=== PATIENT | female | born 1965 | race Caucasian/White ===

== ENCOUNTER 2025-02-16 20:23 | Emergency (ER) | payer BC, SELFPAY ==
--- OUTSIDE RECORDS SUMMARY | 2025-02-16 20:25 | XMS_ITS | Clinical Summary ---
Author Organization [facility] Address [address] [facility] [place] [address] Care Team Providers Care Spot Billing Clerk Name Role Phone Clinic - Jabari Valle [facility] Primary Care Provider Allergies No known active allergies Medications No known medications Active Problems Problem Noted Date Diagnosed Date Perforation of tympanic membrane, left 2 History of mastoidectomy 11/03/2021 Social History Tobacco Use Types Packs/Day Years Used Date Smoking Tobacco: Every Day Smokeless Tobacco: Never Tobacco Cessation:Ready to Q uit: No; Counseling Given: Yes Adolescent Education Answer Date Record ed Getting School Help Needed Not on file 01/30 Comments No Sex and Gender Information Value Date Recorded Sex Assigned at Not on file Legal Sex Female 8:04 AM CDT Gender Identity Not on file Sexual Orientation Not on file Last Filed Vital Signs Vital Sign Reading Time Taken Comments Blood Pressure 135/87 09/05/2021 8:07 AM CDT Pulse 69 09/05/2021 8:07 AM CDT Temperature - - Respiratory Rate - - Oxygen Saturation 98% 09/05/2021 8:07 AM CDT Inhaled Oxygen Concentration - - Weight 65.8 kg (145 lb) 11/03/2021 9:10 AM CDT Height - - Body Mass Index - - Plan of Treatment Not on file [facility] [id number] [facility] [id number] [facility] Care Teams Spot Billing Clerk Relationship Specialty Start Date End Date Clinic - Jabari Valle [address] [place] [address] PCP - General 08/06/21
--- OUTSIDE RECORDS SUMMARY | 2025-02-16 20:26 | XMS_ITS | Clinical Summary ---
Author Organization [employer] [facility] Address [address] [place] [address] Care Team Providers Care Public Service Representative Name Role Phone Unknown, Doctor Primary Care Provider Unavailabl e Allergies No known active allergies Medications cholecalciferol , Vitamin D3, (VITAMIN D-3) 5,000 unit tab tablet Take 1 tablet by mouth once daily. 0 04/09/2020 Active Calcium Citrate 250 mg calcium tablet Take 2 tablets by mouth once daily. 90 tablet 04/09/2020 Active ofloxacin (FLOXIN) 0.3 % otic solutionIndicat ions:Perforatio n of left tympanic membrane Place 5 Drops into left ear two times daily. 5 mL 11/24/2023 Active prednisoLONE acetate 1% ophthalmic suspensionIndic ations:Perforat ion of left tympanic membrane As directed 2 Drops two times daily. Use in left ear for 7 days. Then may use for a couple days at a time when ears itch. 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 Plan: Pap/HPV due 01/2026. Screen for colon cancer Resolved Problems Problem Noted Date Diagnosed Date Resolved Date BV (bacterial vaginosis) 04/02/2014 Vitamin D deficiency 01/03/2014 017 Sprain of lumbosacral (joint) (ligament) 10/25/2007 07/23/2016 RAHEL III with severe dysplasia 05/10/2006 04/20/2019 Overview (03/24/2018): LEEP- RAHEL 2-3 (+margins). Pap/HPV every 3 years x 20 years Immunizations Immunization Administration Dates Next Due Tdap 03/09/2017,01/03/2007 Family History Medical History Relation Name Comments Anesthesia Problem Daughter Bipolar disorder Father Cancer Father Psychiatric illness Father Cancer Mother cervical ca age late 20's Other Mother Psychiatric illness Mother Anesthesia Problem Sister Other Sister ulcers, and qign dder fallen Thyroid Disease Sister Cancer-breast No Family History Cancer-ovarian No Family History Relation Name Status Comments Daughter Father Alive Mother Alive Sister Alive Social History Tobacco Use Types Packs/Day Years Used Date Smoking Tobacco: Every Day Cigarettes 0.5 15 Smokeless Tobacco: Never Tobacco Cessation:Ready to Q uit: Not Asked; Counseling Given: Not Answered Comments:started on wellbutrin 03/09/16 Alcohol Use Standard Drinks/Week Comments Yes 1.7 (1 standard drink = 0.6 oz p ure alcohol) occ PHQ-2 Answer Date Recorded PHQ-2 TOTAL SCORE 0 2023 Social Connections Answer Date Recorded Do you often feel lonely or isolated from those around you? 0 2023 Financial Resource Strain Answer Date R ecorded Difficulty of Paying Living Expenses 3 2023 Difficulty of Paying Living Expenses Not on file 2023 Food Insecurity Answer Date Recorded Do you worry your food will run out before you are able to buy more? 1 2023 Transportation Needs Answer Date Record ed Does lack of transportation keep you from medica l appointments? 1 2023 Does lack of transportation keep you from work, meetings or getting things that you need? 1 2023 Housing Stability Answer Date Recorded What is your housing situation today? 1 2023 Utilities Answer Date Recorded Do you have trouble paying f or utilities (for example, heat, electricity, water, phone)? 1 2023 Comments No Sex and Gender Information Value Date Recorded Sex Assigned at Not on file Legal Sex Female 5:36 AM PRINTER FLOOR COVERING ASSISTANT Gender Identity Not on file Sexual Orientation Not on file Obstetrics History Para Term AB IAB SAB Ectopic Multiple Livin g Live Births 2 2 2 0 0 0 0 0 0 2 2 Date Outcome GA Total Labor Labor/2nd/3rd Weight Sex Type Anes PTL Soha A1 A5 Name Clin Term Living Term Living Last Filed Vital Signs Vital Sign Reading Time Taken Comments Blood Pressure 132/78 09/09/2024 9:02 AM CDT Pulse 70 09/09/2024 9:02 AM CDT Temperature 36.5 C (97.7 F) 09/09/2024 9:02 AM CDT Respiratory Rate 16 09/09/2024 9:02 AM CDT Oxygen Saturation 97% 09/09/2024 9:02 AM CDT Inhaled Oxygen Concentration - - Weight 69.4 kg (153 lb) 2023 7:00 AM CDT Height 163.8 cm (5' 4.5) 2023 7:00 AM CDT Body Mass Index 25.86 2023 7:00 AM CDT Plan of Treatment Upcoming Encounters Date Type Department Care Team (Late st Contact Info) Description 02/20/2025 10:00 AM CDT Office Visit [facility] [address] [place] [phone] Cedrick Dickson-Bernardo Woods MD [address] [facility] [address] [place] [address] Health Maintenance Due Date Last Done Comments Hepatitis B series for 19+ ( 1 of 3 - 19+ 3-dose series) 1985 Pneumococcal series for age 50+ (1 of 2 - PCV) 1985 Zoster (shingles) series for age 50+ (1 of 2) 2016 Mammogram for age 45-75 01/30/2024 01/30/20, 11/25/2021, 05/22/2020, Additional history exists BMI (ht and wt on same day) for age 18+ 11/16/2024 2023, 04/28/2022, 09/29/2021, Additional history exists Depression screening for age 12+ 2024 11/18/2023, 11/18/2023, 11/18/2023, Additional history exists COVID-19 vaccine series ( - season) 2025 Influenza Vaccine (#1) 2025 Pap test for age 21-65 01/29/2026 , 01/29/2023, 09/29/2021, Additional history exists Lipids for age 45-75 09/29/2026 09/29/2021, 04/09/2020, 03/11/2018, Additional history exists Tetanus booster 03/09/2027 03/09/2017, 01/03/2007 Colonoscopy through age 75 04/01/2028 04/01/2018 RSV vaccine for adults or (1 - 1-dose 75+ series) 2041 HIV for age 15-65 Completed 09/02/2017, , 04/26/2017, Additional history exists Hepatitis C screening for ag e 18-79 Completed 09/02/2017, 06/04/2017, 04/26/2017, Additional history exists Procedures Procedure Name Priority Date/Time Associated Diagnosis Comments AIR CREW SUPERVISOR THIN PREP PAP SCREEN IMAGED Routine 01/29/2023 9:45 AM CDT Pap smear for cervical cancer screening XR MAMMO ENRIQUE BILAT SCREEN Routine 01/29/2023 9:01 AM CDT Visit for screening mammogram LIPID PANEL W REFLEX MEASURED LDL Routine 09/29/2021 11:25 AM CDT Routine general medical examination at a health care facility COLONOSCOPY 04/01/2018 9:10 AM PRINTER FLOOR COVERING ASSISTANT ANTI HIV 1/2 Routine 09/02/2017 1:45 PM CDT Exposure to body fluids by contaminated hypodermic needle stick ANTI HCV Routine 09/02/2017 1:45 PM CDT Exposure to body fluids by contaminated hypodermic needle stick from Last 3 Months or Most Recently Relevant to Health Maintenance Results * AIR CREW SUPERVISOR THIN PREP PAP SCREEN IMAGED (01/29/2023 9:45 AM CDT) Case Report Gynecologic Cytology Report Case: [id number] Authorizing Provider: Noemi Wong NP Collected: 01/29/2023 0945 Ordering Location: [facility] Received: 01/29/2023 1005 Clinic First Screen: Shavonne Mccoy Specimen: AIR CREW SUPERVISOR ThinPrep Vial Screening, Cervical 02/04/2023 9:20 AM CDT [facility] INTERPRETATION/ RESULT NEGATIVE FOR INTRAEPITHELIAL LESION OR MALIGNANCY (NIL) (none) 02/04/2023 9:20 AM CDT [facility] at 0920 CDT SPECIMEN ADEQUACY Satisfactory for evaluation Endocervical component present 02/04/2023 9:20 AM CDT [facility] HPV REQUEST HPV and PAP 02/04/2023 9:20 AM CDT [facility] Date of LMP 201202/04/2023 9:20 AM CDT [facility] Last Pap Date 09/29/21 02/04/2023 9:20 AM CDT [facility] Last Pap Result NIL 9:20 AM CDT [facility] Abnormal Pap or Kenefic Bx in last 5 years No 02/04/2023 9:20 AM CDT [facility] Menstrual Status Postmenopausal 02/04/2023 9:20 AM CDT [facility] Kenefic Bx Done Today No 02/04/2023 9:20 AM CDT [facility] Additional Information None given 02/04/2023 9:20 AM CDT [facility] Comment: Cytology is screened at [facility] - [address], [place] [address] and [facility] - [address], [place] [address] and [facility] - [address] [place] [address] Interpreted at [facility] - [address], [place] [address] Automated Review Successful 02/04/2023 9:20 AM CDT [facility] Comment:Specimen processed s uccessfully by automated communications associate device, ThinPrep Imaging System, [employer] ANCILLARY TESTING AIR CREW SUPERVISOR HPV Ordered, Please see separate report 02/04/2023 9:20 AM CDT [facility] Note The pap test is a screening technique, not a diagnostic procedure. It is used primarily to screen for squamous cancers and precursor lesions. Published studies have shown that it is subject to both false negative and false positive results. The pap test should not be used as the sole means to diagnose or exclude pre-malignant and malignant lesions. 02/04/2023 9:20 AM CDT [facility] Other (Cervical) Non-Blood / Unknown 01/29/2023 9:45 AM CDT 01/29/2023 10:05 AM CDT us Noemi Wong NP PATHOLOGY/CYTOLOGY Final Result [facility] [address] [place] [address], [place] * XR MAMMO ENRIQUE BILAT SCREEN (01/29/2023 9:01 AM CDT) Anatomical Region Laterality Modality BREASTS, Breast Left, Breast Right Bilateral Mammography Impressions 01/29/2023 12:20 PM CDT There is no radiographic evidence for malignancy. Recommend annual mammograms. MAMMOGRAM ASSESSMENT: ACR 1 Negative PATIENTS: You will also receive a letter with your examination results in an easy to read format. If you have questions about your results, please contact your referring provider. Narrative 01/29/2023 12:20 PM CDT For Patients: As a result of the Cures Act, medical imaging exams and procedure reports are released immediately into your electronic medical record. You may view this report before your referring provider. If you have questions, please contact your health care provider. XR MAMMO ENRIQUE BILAT SCREEN [[id number]] CLINICAL HISTORY: This is an asymptomatic 57 y.o. patient. INDICATION FOR EXAM: Mammogram Screening. TECHNIQUE: CC & MLO views were obtained. This study was evaluated with the assistance of Computer-Aided Detection. Breast Tomosynthesis was used in interpretation. COMPARISON FILM: Yes 11/25/21 [place] 05/22/20 [place] FINDINGS: The breasts have scattered areas of fibroglandular density. There are no dominant masses, suspicious micro calcifications or areas of architectural distortion. us Noemi Wong VISUAL DESIGN LEAD MAMMO Final Re sult * (ABNORMAL) LIPID PANEL W REFLEX MEASURED LDL (09/29/2021 11:25 AM CDT) CHOLESTEROL,TOTAL 221(H) 100 - 199 mg/dL 09/29/2021 5:43 PM CDT [facility] TRIGLYCERIDES 78 <150 mg/dL 09/29/2021 5:43 PM CDT [facility] HDL CHOLESTEROL 84 >40 mg/dL 5:43 PM CDT [facility] NON-HDL CHOLESTEROL 137 <145 mg/dl 09/29/2021 5:43 PM CDT [facility] CHOL/HDL RATIO 2.63 <4.50 09/29/2021 5:43 PM CDT [facility] LDL CHOLESTEROL 121 <=130 mg/dL 09/29/2021 5:43 PM CDT [facility] VLDL CHOLESTEROL 16 <=30 mg/dL 09/29/2021 5:43 PM CDT [facility] PROVIDER ORDERED STATUS RANDOM 09/29/2021 5:43 PM CDT [facility] Blood BLOOD SPECIMEN / Unknown Venipuncture / Unknown 09/29/2021 11:25 AM CDT 09/29/2021 11:27 AM CDT us Gerda Mead VISUAL DESIGN LEAD CHEMISTRY Final Re sult [facility] [place]NAL ZIP [phone] [place] [address], [place] [phone] * COLONOSCOPY (04/01/2018 9:10 AM PRINTER FLOOR COVERING ASSISTANT) 04/01/2018 9:10 AM PRINTER FLOOR COVERING ASSISTANT Narrative Transcriptions Jose Manuel Lerner MD - 04/01/2018 9:37 AM CST Procedural Care Center Patient Name: Iqra Mai Procedure Date: 04/01/2018 Gender: Female Date of : 1965 Admit Type: Ambulatory Procedure: Colonoscopy Proceduralist: Jose Manuel Lerner MD Indications/Pre-Op Diagnosis: Screening for colorectal malignantneoplasm Medications: Monitored Anesthesia Care Procedure Description: The patient had risks, benefits and alternatives explained to andgave informed consent. The patient had a stable cardiopulmonary status and judged an adequate candidate for conscious sedation. The pediatric colonoscope was passed through the anus and advanced to the cecum, identified by appendiceal orifice and ileocecal valve. The colonoscopy was performed without difficulty. The patient toleratedthe procedure well. The quality of the bowel preparation was good. The ileocecal valve, the appendiceal orifice and the rectum were photographed. Scope Withdrawal Time 0 hours 7 minutes 40 seconds Complications: No immediate complications. Estimated Blood Loss & Specimen: Estimated blood loss: none. Specimen collected: Yes and sent to Laboratory Findings: A 3 mm polyp was found in the sigmoid colon. The polyp was sessile.The polyp was removed with a cold snare. Resection and retrieval were complete. A few diverticula were found in the entire colon. few smallhyperplastic rectal hyperplastic polyps: did not biopsy Impressions/Post-Op Diagnosis: - One 3 mm polyp in the sigmoid colon, removed with a cold snare. Resected and retrieved. - Diverticulosis in the entire examined colon. Recommendation: - High fiber diet. - Repeat colonoscopy 5 years if any polyp is adenoma, 10 yearfollow-up colonoscopy if all polyps are hyperplastic polyps. - Stop screening colonoscopies after age 75 due to age. Jose Manuel Lerner MD 04/01/2018 9:37:16 AM This report has been signed electronically. Note Initiated On: 04/01/2018 9:10 AM Jose Manuel Lerner MD PROCEDURE ORD Final Result * ANTI HCV (09/02/2017 1:45 PM CDT) HEPATITIS C ANTIBODY Non-React dustin Non-React dustin 09/02/2017 6:54 PM CDT [facility] Comment:Antibodies to HCV no t detected; does not exclude the possibility of exposure to HCV. Blood BLOOD SPECIMEN / Unknown Venipuncture / Unknown 09/02/2017 1:45 PM CDT 09/02/2017 1:45 PM CDT Alfonso Pro MD SEND OUTS Jenny l Result [facility] [address] [place] [address], [place] * ANTI HIV 1/2 (09/02/2017 1:45 PM CDT) HIV-1/HIV-2 ANTIBODY Non-Reacti ve Non-Reacti ve 09/02/2017 7:21 PM CDT [facility] Comment:HIV-1 p24 and HIV-1/ HIV-2 Ab not detected. Blood BLOOD SPECIMEN / Unknown Venipuncture / Unknown 09/02/2017 1:45 PM CDT 09/02/2017 1:45 PM CDT us Alfonso Pro MD S[employer] OUTS Jenny patel Result [facility] [address] [place] [address], [place] from Last 3 Months or Most Recently Relevant to Health Maintenance Additional Health Concerns Infection Onset Date Last Indicated CLOSTRIDIUM DIFFICILE 10/23/2021 10/23/2021 Insurance [facility] WORKERS [employer] WORKERS COMP on file [employer] [facility] Member Subscriber Plan / Payer (Ef fective 2009-Present) Name:Iqra Mai Member ID:[id number] Relation to Subscriber:Self Name:Iqra Mai Subscriber ID:[id number] Payer ID:Not on file Group ID:NONE Type:Not on file Address: [facility] [address] [place] [address] [facility] Advance Directives * Full Code (Latest Code Status on File) Date Activated Date Inactivated Comments 04/01/2018 8:33 AM 04/01/2018 12:20 PM Question Answer Comments Code Status Discussion: Not Discussed Care Teams Public Service Representative Relationship Specialty Start Date End Date Unknown, Doctor . PCP - General 03/14/20
[2025-02-16 20:29] VITALS: PULSE 76; RESP 24; TEMP 36.1; O2SAT 99; BMI 25.7
--- NOTE | 2025-02-16 20:39 | ED_ITS ---
HPI - Extremity Injury (Upper) General Time Seen by Provider: 20:39 <Kelly Choi MD - Last Filed: 02/17/25 02:56> Date Seen: 02/16/25 <Kelly Choi MD - Last Filed: 02/17/25 02:56> Chief Complaint: Shoulder Injury/Pain <Kelly Choi MD - Last Filed: 02/17/25 02:56> Stated Complaint: fell and dislocated left shoulder blade <Kelly Choi MD - Last Filed: 02/17/25 02:56> Time Seen by Provider: 02/16/25 20:39 <Kelly Choi MD - Last Filed: 02/17/25 02:56> Source: patient and RN notes reviewed <Kelly Choi MD - Last Filed: 02/17/25 02:56> Mode of arrival: ambulatory <Kelly Choi MD - Last Filed: 02/17/25 02:56> Limitations: no limitations <Kelly Choi MD - Last Filed: 02/17/25 02:56> History of Present Illness HPI narrative: This 53-year-old female is ambulatory into the ED with an injury to her left shoulder. She states she fell about 8:00 p.m.. She fell on the grass, she was holding onto her dog and the dog took off, causing her to fall. She maybe had 3 alcoholic beverages, beer. She last ate around noon. She initially felt some numbness tingling in the fingers of this hand but that has resolved. She can feel fine now. They were sitting around a fire, just enjoying the evening when some dog came into the ER at, the daughter's dog was with the patient and pulled away. She denies hitting her head, no headache, no visual change, no neck or back pain. She fell onto the left shoulder. Nothing else was injured. She is having no difficulty breathing, no chest or chest wall pain. <Kelly Choi MD - Last Filed: 02/17/25 02:56> MD complaint: injury to: left <Kelly Choi MD - Last Filed: 02/17/25 02:56> Related Data Home Medications: Home Medications ?Medication ?Instructions ?Recorded ?Confirmed No Known Home Medications 02/16/2502/07 <Kelly Choi MD - Last Filed: 02/17/25 02:56> Allergies/Adverse Reactions: Allergies Allergy/AdvReac Type Severity Reaction Status Date / Time No Known Drug Allergies Allergy Verified 02/16/25 20:35 <Kelly Choi MD - Last Filed: 02/17/25 02:56> Review of Systems Status of ROS: Reports: 6 or more systems reviewed and unremarkable except as noted in History and below <Kelly Choi MD - Last Filed: 02/17/25 02:56> Exam Const: Vital Signs, click to edit/add: Vital Signs - 24 hr 02/16/25 20:29 02/16/25 21:03 02/16/25 21:11 Temperature 97.0 F L Pulse Rate Pulse Rate [Left P ulse Oximeter] 76 55 L Respiratory Rate 24 20 Blood Pressure [Ri ght Upper Arm] 123/76 Pulse Oximetry 99 94 Oxygen Delivery Me thod Room Air Room Air Nasal Cannula Oxygen Flow Rate 2 02/16/25 22:07 02/16/25 22:15 Temperature Pulse Rate 70 68 Pulse Rate [Left P ulse Oximeter] Respiratory Rate Blood Pressure [Ri ght Upper Arm] Pulse Oximetry 95 95 Oxygen Delivery Me thod Room Air Room Air Oxygen Flow Rate This 59-[facility] due to her severe pain and lack of rooms at this time. She is alert, interactive in obvious pain. She has a sulcus sign along the left shoulder. She is holding her arm in front of her, raised up on her knee, stating this is a position of comfort. She has a good radial pulse, she can wiggle her fingers on this left hand, can feel me touch, has normal cap refill. She has no pain throughout the fingers, hand, wrist, forearm, elbow on this side. Lungs are clear come good air entry, wheeze or crackles, no tachypnea, no accessory muscle use. CV regular rate and rhythm, no murmur, normal S1-S2. <Kelly Choi MD - Last Filed: 02/17/25 02:56> Vital Signs, click to edit/add: Vital Signs - 24 hr 02/16/25 20:29 02/16/25 21:03 02/16/25 21:11 Temperature 97.0 F L Pulse Rate Pulse Rate [Left P ulse Oximeter] 76 55 L Respiratory Rate 24 20 Blood Pressure [Ri ght Upper Arm] 123/76 Pulse Oximetry 99 94 Oxygen Delivery Me thod Room Air Room Air Nasal Cannula Oxygen Flow Rate 2 02/16/25 22:07 02/16/25 22:15 Temperature Pulse Rate 70 68 Pulse Rate [Left P ulse Oximeter] Respiratory Rate Blood Pressure [Ri ght Upper Arm] Pulse Oximetry 95 95 Oxygen Delivery Me thod Room Air Room Air Oxygen Flow Rate <Edinson Blake MD - Last Filed: 02/16/25 23:52> Documenting provider has reviewed patient's vital signs: yes <Kelly Choi MD - Last Filed: 02/17/25 02:56> Course Course ED Course: This patient will be getting imaging, highly suspect a shoulder dislocation. Plan on giving her 10 mL of lidocaine in the glenoid fossa. Have ordered 50 mcg fentanyl, 4 mg IV Zofran and set up for conscious sedation. I do not think that this patient is going to be able to tolerate doing this without conscious sedation given her pain level in discomfort despite alcohol being on board. She still functionally appropriate. <Kelly Choi MD - Last Filed: 02/17/25 02:56> Reevaluation(s) Reevaluation #1: Initial x-rays look like there might be a little dislocation fragment off the proximal humerus but it does appear to be an anterior dislocation. Patient was consented on conscious sedation and shoulder reduction. I do not think given her discomfort that we really can wait. Dr. Blake was present, I was able to use some traction and support under the humeral head and reduce it back into the glenoid fossa. [place] the clunking going back in. Patient had sedation assisted by Dr. Blake, please see his documentation. After the procedure, shoulder immobilizer was placed, post imaging films reviewed and looks like you can see a lateral humeral head fracture but she is relocated in the joint. Shoulder immobilizer placed, neurovascular is documented to be intact. <Kelly Choi MD - Last Filed: 02/17/25 02:56> Time of Reevaluation #2: 21:56 <Kelly Choi MD - Last Filed: 02/17/25 02:56> Reevaluation #2: Patient is requesting more pain medications, will try some Toradol IV and PO Tylenol. <Kelly Choi MD - Last Filed: 02/17/25 02:56> Time of Reevaluation #3: 22:47 <Kelly Choi MD - Last Filed: 02/17/25 02:56> Reevaluation #3: Patient has minute post sedation criteria. Have discussed restrictions and follow-up recommendations. Demonstrated pendulum exercises. We reviewed that these are done to help prevent frozen shoulder later on. She is safe for discharge now. <Kelly Choi MD - Last Filed: 02/17/25 02:56> Vital Signs Vital signs: Initial Vital Signs Temperature 97.0 F L 02/16/25 20:29 Temperature Source Temporal Artery Scan 02/16/25 20:29 Pulse Rate 76 02/16/25 20:29 Pulse Rhythm Regular 02/16/25 20:29 Respiratory Rate 24 02/16/25 20:29 Pulse Oximetry 99 02/16/25 20:29 Oxygen Delivery Method Room Air 02/16/25 20:29 Vital Signs Temperature 97.0 F L 02/16/25 20:29 Pulse Rate 76 02/16/25 20:29 Respiratory Rate 24 02/16/25 20:29 Pulse Oximetry 99 02/16/25 20:29 Oxygen Delivery Method Room Air 02/16/25 20:29 Temperature 97.0 F L 02/16/25 20:29 Pulse Rate 68 02/16/25 22:15 Respiratory Rate 20 02/16/25 21:11 Blood Pressure 123/76 02/16/25 21:11 Pulse Oximetry 95 02/16/25 22:15 Oxygen Delivery Method Room Air 02/16/25 22:15 Oxygen Flow Rate 2 02/16/25 21:11 <Kelly Choi MD - Last Filed: 02/17/25 02:56> Initial Vital Signs Temperature 97.0 F L 02/16/25 20:29 Temperature Source Temporal Artery Scan 02/16/25 20:29 Pulse Rate 76 02/16/25 20:29 Pulse Rhythm Regular 02/16/25 20:29 Respiratory Rate 24 02/16/25 20:29 Pulse Oximetry 99 02/16/25 20:29 Oxygen Delivery Method Room Air 02/16/25 20:29 Vital Signs Temperature 97.0 F L 02/16/25 20:29 Pulse Rate 76 02/16/25 20:29 Respiratory Rate 24 02/16/25 20:29 Pulse Oximetry 99 02/16/25 20:29 Oxygen Delivery Method Room Air 02/16/25 20:29 Temperature 97.0 F L 02/16/25 20:29 Pulse Rate 68 02/16/25 22:15 Respiratory Rate 20 02/16/25 21:11 Blood Pressure 123/76 02/16/25 21:11 Pulse Oximetry 95 02/16/25 22:15 Oxygen Delivery Method Room Air 02/16/25 22:15 Oxygen Flow Rate 2 02/16/25 21:11 <Edinson Blake MD - Last Filed: 02/16/25 23:52> Medications Administered Medications: Discontinued Medications Generic Name Dose Route Start Last Admin Trade Name Freq PRN Reason Stop Dose Admin Acetaminophen 1,000 mg 02/16/25 21:55 02/16/25 22:19 Acetaminophen 500 Mg Tablet PO 02/16/25 21:56 1,000 mg ONCE ONE Administration Fentanyl 50 mcg 02/16/25 20:44 02/16/25 21:00 Fentanyl 100 Mcg/2 Ml Inj IVP 02/16/25 20:45 50 mcg ONCE ONE Administration Sodium Chloride 500 mls @ 500 mls/hr 02/16/25 20:44 02/16/25 22:10 0.9 % Sodium Chloride 500 Ml IV 02/16/25 21:43 Infused .Q1H ONE Infusion Ketorolac Tromethamine 15 mg 02/16/25 21:55 02/16/25 22:16 Ketorolac 15 Mg/Ml Inj IVP 02/16/25 21:56 15 mg ONCE ONE Administration Lidocaine HCl 10 ml 02/16/25 20:44 02/16/25 21:00 Lidocaine 1% Mdv INJECTION 02/16/25 20:45 10 ml ONCE ONE Administration Ondansetron HCl 4 mg 02/16/25 20:44 02/16/25 21:00 Ondansetron 2 Mg/Ml Inj IVP 02/16/25 20:45 4 mg ONCE ONE Administration Propofol 200 mg 02/16/25 20:58 02/16/25 21:12 Propofol 10 Mg/Ml Inj IVP 02/16/25 20:59 50 mg ONCE ONE Administration <Kelly Choi MD - Last Filed: 02/17/25 02:56> Discontinued Medications Generic Name Dose Route Start Last Admin Trade Name Freq PRN Reason Stop Dose Admin Acetaminophen 1,000 mg 02/16/25 21:55 02/16/25 22:19 Acetaminophen 500 Mg Tablet PO 02/16/25 21:56 1,000 mg ONCE ONE Administration Fentanyl 50 mcg 02/16/25 20:44 02/16/25 21:00 Fentanyl 100 Mcg/2 Ml Inj IVP 02/16/25 20:45 50 mcg ONCE ONE Administration Sodium Chloride 500 mls @ 500 mls/hr 02/16/25 20:44 02/16/25 22:10 0.9 % Sodium Chloride 500 Ml IV 02/16/25 21:43 Infused .Q1H ONE Infusion Ketorolac Tromethamine 15 mg 02/16/25 21:55 02/16/25 22:16 Ketorolac 15 Mg/Ml Inj IVP 02/16/25 21:56 15 mg ONCE ONE Administration Lidocaine HCl 10 ml 02/16/25 20:44 02/16/25 21:00 Lidocaine 1% Mdv INJECTION 02/16/25 20:45 10 ml ONCE ONE Administration Ondansetron HCl 4 mg 02/16/25 20:44 02/16/25 21:00 Ondansetron 2 Mg/Ml Inj IVP 02/16/25 20:45 4 mg ONCE ONE Administration Propofol 200 mg 02/16/25 20:58 02/16/25 21:12 Propofol 10 Mg/Ml Inj IVP 02/16/25 20:59 50 mg ONCE ONE Administration <Edinson Blake MD - Last Filed: 02/16/25 23:52> MDM - Extremity Injury (Upper) Imaging Data XR left shoulder: Attestation: I have reviewed the pertinent imaging results. <Kelly Gregory MD - Last Filed: 02/17/25 02:56> My impression: Shoulder dislocation with probable fracture, wait radiology over read. <Kelly Choi MD - Last Filed: 02/17/25 02:56> Radiologist's impression: Patient: KARO VIDAL Facility:?[facility] Patient ID:?[id number] Site Patient ID:?[id number]. Site :?1965 Study:?XRay-Shoulder Left SHOULDER 2 VIEWS-02/16/2025 9:03:09 PM Ordering Physician:Raghav Mendoza Final Report: Indication: Trauma. Technique: Left shoulder, 2 views. Comparison: None. Findings/Impression: Bones/joint spaces: Anteroinferior shoulder dislocation. Associated curvilinear acute fracture fragment, with donor site favored to be the humeral greater tuberosity. Soft tissues: Unremarkable. Dictated by Chicho Salinas MD @ 02/16/2025 9:13:59 PM (Electronic Signature) <Kelly Choi MD - Last Filed: 02/17/25 02:56> XR left shoulder post-reduction: Attestation: I have reviewed the pertinent imaging results. <Kelly pascal MD - Last Filed: 02/17/25 02:56> Radiologist's impression: Patient: KARO VIDAL Facility:?[facility] Patient ID:?[id number] Site Patient ID:?[id number]. Site :?1965 Study:?XRay-Shoulder Left POST REDUCTION-02/16/2025 9:24:54 PM Ordering Physician:Robb Neves Final Report: Indication: Postreduction Technique: Two views of the left shoulder Comparison: Same day radiographs Findings/Impression: Interval reduction of the previously noted shoulder dislocation. Humeral head fracture fragments again noted. Dictated by Manoj De La Cruz MD @ 02/16/2025 9:36:23 PM (Electronic Signature) <Kelly Choi MD - Last Filed: 02/17/25 02:56> Discharge Plan Discharge Clinical Impression: Anterior dislocation of left shoulder, Fracture of head of humerus <Kelly Choi MD - Last Filed: 02/17/25 02:56> Patient Disposition: Home, Self-Care <Kelly Choi MD - Last Filed: 02/17/25 02:56> Condition: Stable <Kelly Choi MD - Last Filed: 02/17/25 02:56> Instructions: Arm Fracture in Adults (ED), Shoulder Dislocation (ED) <Kelly Choi MD - Last Filed: 02/17/25 02:56> Additional Instructions: Keep shoulder immobilizer on at this time. May take off once a day to shower, do pendulum exercises went off. Do not do any overhead activity or lifting the arm up overhead, can read dislocate. Ice shoulder to help decrease pain and swelling. Can use Tylenol and ibuprofen per bottle directions as needed for pain management. He will need to call the orthopedic office thing Wednesday morning to get scheduled for follow-up and further management. Phone number is [phone]. <Kelly Choi MD - Last Filed: 02/17/25 02:56> Prescriptions: No Action No Known Home Medications <Kelly Choi MD - Last Filed: 02/17/25 02:56> Stand Alone Forms: MyHealth Info Instructions <Kelly Choi MD - Last Filed: 02/17/25 02:56> Procedures Procedural Sedation Pre procedure diagnosis: Left shoulder dislocation and humeral head fracture <Edinson Blake MD - Last Filed: 02/16/25 23:52> Post procedure diagnosis: Left shoulder dislocation and humeral head fracture <Edinson Blake MD - Last Filed: 02/16/25 23:52> Written consent by: health care proxy (From daughter as mother is intoxicated) <Edinson Blake MD - Last Filed: 02/16/25 23:52> Verification/time out: correct patient and correct procedure <Edinson Blake MD - Last Filed: 02/16/25 23:52> Name of person perfmorming the procedure: Kelly Choi <Edinson Blake MD - Last Filed: 02/16/25 23:52> Sedation provider same as procedural provider: No <Edinson Blake MD - Last Filed: 02/16/25 23:52> Assistants, if any: Lou assisting with sedation and airway <Edinson Blake MD - Last Filed: 02/16/25 23:52> Assistants, if any: nursing <Edinson Blake MD - Last Filed: 02/16/25 23:52> Indication: fracture/dislocation reduction <Edinson Blake MD - Last Filed: 02/16/25 23:52> ASA Class: I <Edinson Blake MD - Last Filed: 02/16/25 23:52> Preparation: burnishing machine operator applied, pulse oximeter, capnometry used, supplemental O2 applied, suction/airway equipment at bedside and IV secured <Edinson Blake MD - Last Filed: 02/16/25 23:52> IV Propofol dose (mg): 50 <Edinson Blaek MD - Last Filed: 02/16/25 23:52> Patient Tolerated Procedure: well <Edinson Blake MD - Last Filed: 02/16/25 23:52> Complications: hypoventilation (repositioning of airway with jaw thrust and nasal cannula oxygen) <Edinson Blake MD - Last Filed: 02/16/25 23:52> Interventions: oxygen applied and airway repositioned <Edinson Blake MD - Last Filed: 02/16/25 23:52> Additional Comments: Alerted very quickly to baseline level of intoxication following successful reduction of shoulder verified with x-ray <Edinson Blake MD - Last Filed: 02/16/25 23:52>
--- NOTE | 2025-02-16 20:43 | CRLHL7_ITS ---
For Patients: As a result of the Century Cures Act, medical imaging exams and procedure reports are released immediately into your electronic medical record. You may view this report before your referring provider. If you have questions, please contact your health care provider. Indication: Trauma. Technique: Left shoulder, 2 views. Comparison: None. Findings/Impression: Bones/joint spaces: Anteroinferior shoulder dislocation. Associated curvilinear acute fracture fragment, with donor site favored to be the humeral greater tuberosity. Soft tissues: Unremarkable. Dictated by Chicho Salinas MD @ 02/16/2025 9:13:59 PM (Electronically Signed)
[2025-02-16] MEDS: LIDOCAINE 1% MDV 10 ML INJECTION (21:00)
[2025-02-16] MEDS: ONDANSETRON 2 MG/ML inj 4 MG IVP (21:00)
[2025-02-16] MEDS: 0.9 % SODIUM CHLORIDE 500 ML 500 ML IV (21:10)
[2025-02-16 21:11] VITALS: BP 123/76; PULSE 55; RESP 20; O2SAT 94
[2025-02-16] MEDS: PROPOFOL 10 MG/ML INJ 200 MG IVP (21:12)
--- NOTE | 2025-02-16 21:15 | CRLHL7_ITS ---
For Patients: As a result of the Cures Act, medical imaging exams and procedure reports are released immediately into your electronic medical record. You may view this report before your referring provider. If you have questions, please contact your health care provider. Indication: Postreduction Technique: Two views of the left shoulder Comparison: Same day radiographs Findings/Impression: Interval reduction of the previously noted shoulder dislocation. Humeral head fracture fragments again noted. Dictated by Manoj De La Cruz MD @ 02/16/2025 9:36:23 PM (Electronically Signed)
[2025-02-16 22:07] VITALS: PULSE 70; O2SAT 95
[2025-02-16 22:15] VITALS: PULSE 68; O2SAT 95
[2025-02-16] MEDS: ACETAMINOPHEN 500 MG TABLET 1000 MG PO (22:19)
== END 2025-02-16 23:01 | disposition home or self-care (01) ==
PROVIDERS: Emergency Provider Family Medicine
DX: S43.015A Anterior dislocation of left humerus, initial encounter (principal); S42.215A Unspecified nondisplaced fracture of surgical neck of left humerus, initial encounter for closed fracture; W18.30XA Fall on same level, unspecified, initial encounter; W54.1XXA Struck by dog, initial encounter
CPT/HCPCS: 23655; 73030; 94761; 96374; 96375; 99156; 99284; 99285; J2003; A9270; J1885; J2405; J2704; J3010; J7030

== ENCOUNTER 2025-02-26 09:28 | Outpatient (CLI) | payer BC, SELFPAY ==
--- NOTE | 2025-02-26 10:00 | CRLHL7_ITS ---
For Patients: As a result of the Century Cures Act, medical imaging exams and procedure reports are released immediately into your electronic medical record. You may view this report before your referring provider. If you have questions, please contact your health care provider. Indication: left shoulder fracture Technique: Noncontrast CT left shoulder Please note that all CT scans at this facility use dose modulation, iterative reconstruction, and/or weight-based dosing when appropriate to reduce radiation dose to as low as reasonably achievable. Comparison: Radiographs 02/16/2025 Findings: There is a mildly displaced and comminuted fracture of the superolateral humeral head primarily involving the greater tuberosity. A subtle deformity of the anterior inferior glenoid is suspected with tiny osseous densities suggested adjacent to the glenoid. The lesser tuberosity is intact. The proximal humeral diaphysis is maintained. Remainder of the scapula intact. Unremarkable clavicle. Visualized ribs normal. Narrowing and spurring at the acromioclavicular joint with subacromial hook. No axillary adenopathy. Visualized lung parenchyma normal. Impression: Mildly displaced and comminuted proximal humeral fracture involving the superolateral humeral head with involvement of the greater tuberosity. Suspicion of a bony [place] fracture. Glenohumeral alignment is normal. 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 Please note that all CT scans at this facility use dose modulation, iterative reconstruction, and/or weight-based dosing when appropriate to reduce radiation dose to as low as reasonably achievable. Dictated by Edinson Lewis MD @ 02/26/2025 10:29:13 AM (Electronically Signed)
== END 2025-02-26 09:29 | disposition home or self-care (01) ==
LOC: CT 09:29
PROVIDERS: Visit Provider Physician Assistant Surgical
DX: S42.292A Other displaced fracture of upper end of left humerus, initial encounter for closed fracture (principal); S43.015A Anterior dislocation of left humerus, initial encounter; M19.012 Primary osteoarthritis, left shoulder
CPT/HCPCS: 73200